=== PATIENT | female | born 1975 | race Two or more races ===

== ENCOUNTER 2018-06-29 08:58 | Outpatient (CLI) | payer OTHER | END 2018-06-29 09:09 | disposition home or self-care (01) | LOC: MAMO-SONO 08:58 | DX: Z12.31 Encounter for screening mammogram for malignant neoplasm of breast (principal); N64.4 Mastodynia; N83.291 Other ovarian cyst, right side ==

== ENCOUNTER → 2019-11-14 | Outpatient (CLI) | payer OTHER | END | disposition home or self-care (01) | LOC: MAMO-SONO 09:03 | DX: N64.4 Mastodynia (principal); Z12.31 Encounter for screening mammogram for malignant neoplasm of breast; D25.1 Intramural leiomyoma of uterus; E03.8 Other specified hypothyroidism ==